=== PATIENT | female | born 1995 | race Hispanic/Latino ===

== ENCOUNTER 2019-10-13 14:43 | Emergency (ER) | payer BC, SELFPAY ==
[2019-10-13] MEDS ORDERED: Ondansetron ODT 4 MG TAB ONE (15:42)
== END 2019-10-13 15:49 | disposition home or self-care (01) ==
LOC: ERS 14:43
DX: R11.2 Nausea with vomiting, unspecified (principal); F41.9 Anxiety disorder, unspecified; F20.9 Schizophrenia, unspecified
CPT/HCPCS: 99283; Q0162